=== PATIENT | male | born 1995 | race Hispanic/Latino ===

== ENCOUNTER 2019-11-10 18:33 | Emergency (ER) | payer OTHER ==
[~2019-11-10] VITALS: Ht 172.7 cm; Wt 63.5 kg
[2019-11-10] MEDS ORDERED: MAXITROL EYE O3.5 GM OP (18:52)
[2019-11-10] MEDS ORDERED: AUGMENTIN 500-1 EACH PO (18:53)
== END 2019-11-10 19:04 | disposition home or self-care (01) ==
LOC: FSED 18:33
DX: H11.32 Conjunctival hemorrhage, left eye (principal)
CPT/HCPCS: 99282